=== PATIENT | female | born 1965 | race African-American/Black ===

== ENCOUNTER 2018-07-25 09:50 | Emergency (ER) | payer MEDICAID, OTHER ==
[~2018-07-25] VITALS: Ht 175.3 cm; Wt 117.0 kg
[2018-07-25] MEDS ORDERED: IV NS 0.9% 500 ML IV ONE (10:00)
[2018-07-25] MEDS ORDERED: ONDANSETRON HCL/PF - ER 4 MG/2 ML VIAL IV ONE (10:00)
[2018-07-25] MEDS ORDERED: HYDROMORPHONE INJ 0.5 MG/0.5 ML SYRINGE IV ONE ×2 (10:00→13:30)
--- NOTE | 2018-07-25 10:00 | NUR ---
PT BROUGHT IN BY AMBULANCE TO RIGHT ANKLE PAIN AFTER FALLING ON MUUDY GROUND WHILE GETTING OUT OF CAR PT ACCOMPANIED BT FRIEND
[2018-07-25] MEDS ORDERED: ONDANSETRON HCL/PF 4 MG/2 ML VIAL ONE (10:10)
[2018-07-25] MEDS ORDERED: PROPOFOL 20 ML IV ONE (10:10)
[2018-07-25] MEDS ORDERED: HYDROMORPHONE 1 MG/1 ML DISP.SYRIN ONE ×2 (10:11→13:09)
[2018-07-25] MEDS ORDERED: PROPOFOL 1,000 MG/100 ML BOTTLE IV ONE (10:30)
--- NOTE | 2018-07-25 11:10 | NUR ---
PT HAS SPLINT OVER RIGHT ANKLE X-RAY TAKEN PENDING MD RE-EVALUATION.
[2018-07-25] MEDS ORDERED: IBUP-1953 PO (11:33)
[2018-07-25] MEDS ORDERED: [UNRECOGNIZED DRUG - OTHER] PO (11:33)
--- NOTE | 2018-07-25 11:39 | NUR ---
PT UP TO BATH ROOM AND BACK WITH WHEEL CHAIR AND ASSISSTANCE FROM FAMILY RIGHT LEG ELEVATED
[2018-07-25 12:14] LABS: BASOPHILS % (AUTO) 0.3 % (0.0-2.0); EOSINOPHILS % (AUTO) 1.5 % (0.0-6.0); HEMATOCRIT 41 % (33-45); HEMOGLOBIN 13.9 g/dL (11.5-14.8); LYMPHOCYTES # (AUTO) 1.4 /CMM (0.8-4.8); LYMPHOCYTES % (AUTO) 16.5 % (20.0-44.0); MEAN CORPUSCULAR HGB CONC 34 g/dl (31.0-36.0); MEAN CORPUSCULAR VOLUME 93 fL (82-100); MONOCYTES # (AUTO) 0.4 /CMM (0.1-1.30); MONOCYTES % (AUTO) 4.7 % (2.0-12.0); NEUTROPHILS # (AUTO) 6.4 /CMM (1.8-8.9); PLATELET COUNT (AUTO) 247 /CMM (150-450); RED BLOOD CELL COUNT(AUTO) 4.43 MIL/uL (4.0-5.2); WHITE BLOOD COUNT (AUTO) 8.2 K/uL (4.3-11.0)
[2018-07-25 12:25] LABS: CALCIUM, SERUM 8.7 mg/dL (8.5-10.1); CREATININE 0.6 mg/dL (0.6-1.3); POTASSIUM 4.5 mmol/L (3.5-5.1)
--- NOTE | 2018-07-25 13:12 | NUR ---
administered 0.5 mg dilaudid wasted 0.5mg
--- NOTE | 2018-07-25 13:39 | NUR ---
LISA HAYES FOR [facility]. WILL CALL BACK FOR POSSIBLE XFER
--- NOTE | 2018-07-25 14:56 | NUR ---
ALISA ([facility] [employer]) CALLED, STATED THAT SHE WAS WORKING ON TRANSFERING PT TO [facility], AND SHE WOULD CALL BACK ONCE SHE GOT A BED NUMBER.
--- NOTE | 2018-07-25 19:13 | NUR ---
CHUY FROM [facility] CALLED WITH BED ASSIFGNMENT AT [facility] ROOM [id number] RN REPORT GIVEN TO MARY CHARGE NURSE. TELEPHONE NUMBER: EXTENSION: [phone] BY [facility]. MARY WANTS A CALL BACK WHEN AMBULANCE IS ENROUTE.
--- NOTE | 2018-07-25 19:30 | NUR ---
RECEIVED REPORT FROM RACIEL TALLEY FOR [facility]
--- NOTE | 2018-07-25 20:00 | NUR ---
PT C/O R LEG PAIN, 12/18 AND REQUESTING PAIN MEDICATION. INFORMED ER MD
[2018-07-25] MEDS ORDERED: MORPHINE SULFATE INJ 4 MG/ML DISP.SYRIN ONE (20:22)
[2018-07-25] MEDS ORDERED: MORPHINE SULFATE INJ 2 MG/ML DISP.SYRIN IV ONE (20:30)
[2018-07-25 20:57] VITALS: BP 140/73
--- NOTE | 2018-07-25 21:10 | NUR ---
GAVE REPORT TO [facility] FOR TRANSPORTATION [facility]
== END 2018-07-25 21:12 | disposition short-term general hospital (02) ==
LOC: ER 09:50
DX: S82.841A Displaced bimalleolar fracture of right lower leg, initial encounter for closed fracture (principal); I45.10 Unspecified right bundle-branch block; W18.39XA Other fall on same level, initial encounter; Y93.89 Activity, other specified; Y92.89 Other specified places as the place of occurrence of the external cause; Y99.8 Other external cause status
CPT/HCPCS: 27810; 36415; 71045; 73600; 73610; 80048; 85025; 85730; 86850; 93005; 96374; 96375; 96376; 99152; 99285; J1170 ×2; J2270; J2405; J2704; G0500